=== PATIENT | male | born 1970 | race Asian ===

== ENCOUNTER 2017-03-22 20:34 | Emergency (ER) | payer BC ==
[~2017-03-22] VITALS: Ht 172.7 cm; Wt 62.6 kg
[2017-03-22] MEDS ORDERED: MULTIVITAMINS1 EAC2 ORAL (20:51)
[2017-03-22 21:00] VITALS: BP 120/78
[2017-03-22 21:53] LABS: BASOPHILS % (AUTO) 1.7 % (0.0-2.0); EOSINOPHILS % (AUTO) 0.4 % (0.0-3.0); LYMPHOCYTES % (AUTO) 31.3 % (20.0-45.0); MEAN CORPUSCULAR VOLUME 92 FL (80-99); MEAN PLATELET VOLUME 6.7 FL (6.5-10.1); MONOCYTES % (AUTO) 8.3 % (1.0-10.0); NEUTROPHILS % (AUTO) 58.3 % (45.0-75.0); PLATELET COUNT 202 K/UL (150-450); RED BLOOD COUNT 4.49 M/UL (4.70-6.10); RED CELL DISTRIBUTION WIDTH 11.5 % (11.6-14.8); WHITE BLOOD COUNT 5.1 K/UL (4.8-10.8)
[2017-03-22 22:18] LABS: TROPONIN I < 0.30 ng/mL (<=0.30)
[2017-03-22 22:22] LABS: ALANINE AMINOTRANSFERASE 34 U/L (3-41); ALBUMIN/GLOBULIN RATIO 2.2 (1.0-2.7); ANION GAP 12 (5-15); ASPARTATE AMINO TRANSFERASE 52 U/L (5-40); CALCIUM 8.9 mg/dL (8.6-10.2); CARBON DIOXIDE 25 mEQ/L (20-30); CHLORIDE 103 mEQ/L (98-107); CREATININE 0.7 mg/dL (0.7-1.2); GLOMERULAR FILTRATION RATE > 60 mL/min (>60); HEMOLYSIS 15; POTASSIUM 4.2 mEQ/L (3.4-4.9); SODIUM 140 mEQ/L (135-145); TOTAL PROTEIN 6.5 g/dL (6.6-8.7)
[2017-03-22 22:32] LABS: CKMB < 1.5 ng/mL (< 6.7)
[2017-03-22] MEDS ORDERED: PRILOSEC10 M1 ORAL (22:41)
[2017-03-22] MEDS ORDERED: Tetanus/Diptheria/Pertussis Vaccine 0.5ml Syr IM ONE (22:45)
[2017-03-22 23:15] VITALS: BP 128/74
[2017-03-22 23:24] VITALS: BP 128/74
--- NOTE | 2017-03-22 23:44 | Emergency Room Report ---
History of Present Illness General Chief Complaint: Chest Pain Source: Patient Present Illness HPI Patient is a 46-year-old male who presented after increased left-sided chest pain. Patient states he been having increased chest discomfort left-sided chest which did not radiate. The pain is not changed by deep breath. He onset during some the recent upset. Patient denied any prior history of cardiac disease. He had prior history of a cardiac murmur. Patient not been having any vomiting. He denies any recent travel or leg swelling. He reports having some alcohol earlier in the day. Allergies: Coded Allergies: No Known Allergies (Unverified , 03/22/17) Patient History Past Medical History: see triage record Reviewed Nursing Documentation: PMH: Agreed, PSxH: Agreed Nursing Documentation-PMH Past Medical History: No Stated History Review of Systems All Other Systems: negative except mentioned in HPI Physical Exam Vital Signs Date Time Temp Pulse Resp B/P Pulse Ox O2 Delivery O2 Flow Rate FiO2 03/22/17 20:46 98.2 84 16 121/77 96 Room Air Sp02 EP Interpretation: reviewed, normal General Appearance: normal inspection, well appearing, no apparent distress, alert, GCS 15 Head: atraumatic ENT: normal ENT inspection, hearing grossly normal, normal voice Neck: normal inspection, full range of motion, supple, no bony tend Respiratory: normal inspection, lungs clear, normal breath sounds, no respiratory distress, no retraction, no wheezing Cardiovascular #1: regular rate, rhythm, no edema Gastrointestinal: normal inspection, normal bowel sounds, non tender, soft, no guarding, no hernia Genitourinary: no CVA tenderness Musculoskeletal: normal inspection, back normal, normal range of motion Neurologic: normal inspection, alert, oriented x3, responsive, tool crib attendant III-XII nml as tested, speech normal Psychiatric: normal inspection, judgement/insight normal, mood/affect normal Skin: normal inspection, normal color, no rash Medical Decision Making Diagnostic Impression: Primary Impression: Chest pain ER Course Patient presented for chest pain.Differential diagnosis included but was not limited to acute coronary syndrome, pulmonary embolism, pneumonia, aortic dissection, shingles, pneumothorax, aortic dissection, esophageal rupture, pericarditis. Because of complexity of patient's case laboratory testing and imaging studies were ordered. Laboratory studies are essentially unremarkable. chest x-ray one view interpreted by me showed normal cardiac size without evident infiltrate. Patient was noted to have EKG interpreted by me was normal sinus rhythm with a rate of [address] or T wave changes. The patient was given Mylanta by mouth. The patient is advised to follow up with primary care doctor in 1-2 days. Patient is advised to return if any worsening condition or if any changes in status that are concerning. Labs Test 03/22/17 21:20 White Blood Count 5.1 K/UL (4.8-10.8) Red Blood Count 4.49 M/UL (4.70-6.10) Hemoglobin 14.4 G/DL (14.2-18.0) Hematocrit 41.1 % (42.0-52.0) Mean Corpuscular Volume 92 FL (80-99) Mean Corpuscular Hemoglobin 32.0 PG (27.0-31.0) Mean Corpuscular Hemoglobin Concent 35.0 G/DL (32.0-36.0) Red Cell Distribution Width 11.5 % (11.6-14.8) Platelet Count 202 K/UL (150-450) Mean Platelet Volume 6.7 FL (6.5-10.1) Neutrophils (%) (Auto) 58.3 % (45.0-75.0) Lymphocytes (%) (Auto) 31.3 % (20.0-45.0) Monocytes (%) (Auto) 8.3 % (1.0-10.0) Eosinophils (%) (Auto) 0.4 % (0.0-3.0) Basophils (%) (Auto) 1.7 % (0.0-2.0) D-Dimer < 100 ng/mL (<500) Sodium Level 140 mEQ/L (135-145) Potassium Level 4.2 mEQ/L (3.4-4.9) Chloride Level 103 mEQ/L (98-107) Carbon Dioxide Level 25 mEQ/L (20-30) Anion Gap 12 (5-15) Blood Urea Nitrogen 20 mg/dL (7-23) Creatinine 0.7 mg/dL (0.7-1.2) Estimat Glomerular Filtration Rate > 60 mL/min (>60) Glucose Level 96 mg/dL (74-106) Calcium Level 8.9 mg/dL (8.6-10.2) Total Bilirubin 0.3 mg/dL (0.0-1.2) Aspartate Amino Transf (AST/SGOT) 52 U/L (5-40) Alanine Aminotransferase (ALT/SGPT) 34 U/L (3-41) Alkaline Phosphatase 54 U/L (40-129) Total Creatine Kinase 110 U/L (38-174) Creatine Kinase MB < 1.5 ng/mL (< 6.7) Creatine Kinase MB Relative Index Troponin I < 0.30 ng/mL (<=0.30) Pro-B-Type Natriuretic Peptide 26 pg/mL (0-125) Total Protein 6.5 g/dL (6.6-8.7) Albumin 4.5 g/dL (3.5-5.2) Globulin 2.0 g/dL Albumin/Globulin Ratio 2.2 (1.0-2.7) Last Vital Signs Date Time Temp Pulse Resp B/P Pulse Ox O2 Delivery O2 Flow Rate FiO2 03/22/17 23:24 98.2 79 16 128/74 100 Room Air Status: improved Disposition: HOME, SELF-CARE Condition: Stable Scripts Omeprazole Magnesium (PRILOSEC) 10 Mg Suspdr.pkt 10 MG ORAL DAILY, #20 PACKET Prov: Dg Javier 03/22/17 Patient Instructions: Nonspecific Chest Pain Dg Javier Mar 22, 2017 23:44
--- NOTE | 2017-03-25 08:16 | Diagnostic Imaging Report ---
Indication: Shortness of breath Technique: XRAY CHEST 1 V Comparison: None Findings: The cardiomediastinal silhouette is within normal limits. There is no focal consolidation, pneumothorax or pleural effusion. Osseous structures demonstrate no acute abnormality. Impression: No acute cardiopulmonary disease.
--- NOTE | 2017-03-25 08:18 | Cardiology Report ---
APPROVED REPORT EKG Measurement Heart [id number] NM 146P-9 [id number] Normal sinus rhythm Normal ECG
--- NOTE | 2017-03-25 08:18 | Cardiology Report ---
APPROVED REPORT EKG Measurement Heart [id number] IA [id number] Normal sinus rhythm Normal ECG
== END 2017-03-22 23:28 | disposition home or self-care (01) ==
LOC: EMR 21:03
DX: R07.89 Other chest pain (principal); R06.02 Shortness of breath; Z23 Encounter for immunization
CPT/HCPCS: 36415; 71010; 80053; 82550; 82553; 83880; 84484; 85025; 85379; 90471; 90715; 93005; 96372; 99283; 99284